=== PATIENT | male | born 1970 | race Caucasian/White ===

== ENCOUNTER 2017-12-25 13:16 | Emergency (ER) | payer MEDICAID ==
[~2017-12-25] VITALS: Ht 172.7 cm; Wt 70.4 kg
[2017-12-25 13:36] VITALS: BP 133/87
[2017-12-25] MEDS ORDERED: CLIN300C85 PO (13:45)
== END 2017-12-25 14:13 | disposition home or self-care (01) ==
LOC: ER 13:17
DX: K04.7 Periapical abscess without sinus (principal); Z79.899 Other long term (current) drug therapy
CPT/HCPCS: 99283

== ENCOUNTER 2019-03-30 09:19 | Emergency (ER) | payer MEDICAID ==
[~2019-03-30] VITALS: Ht 172.7 cm; Wt 56.7 kg
[~2019-03-30 09:19] MED LIST: CLIN-96 PO
[2019-03-30 09:29] VITALS: BP 114/75
[2019-03-30] MEDS ORDERED: AMOX500C2 PO (10:06)
[2019-03-30] MEDS ORDERED: CHLO473M3 PO (10:06)
== END 2019-03-30 10:20 | disposition home or self-care (01) ==
LOC: ER 09:19
DX: K04.7 Periapical abscess without sinus (principal)
CPT/HCPCS: 99283

== ENCOUNTER 2022-12-15 08:18 | Emergency (ER) | payer MEDICAID ==
[~2022-12-15] VITALS: Ht 172.7 cm; Wt 68.2 kg
[~2022-12-15 08:18] MED LIST changes: +CHLO473M3 PO; -CLIN-96 PO; +CLIN-97 PO
[2022-12-15 08:21] VITALS: BP 133/74
[2022-12-15] MEDS ORDERED: CHLO473M3 PO (09:50)
[2022-12-15] MEDS ORDERED: AMOX-419 PO (09:50)
== END 2022-12-15 10:01 | disposition home or self-care (01) ==
LOC: ER 08:19
DX: K08.89 Other specified disorders of teeth and supporting structures (principal); Z79.899 Other long term (current) drug therapy
CPT/HCPCS: 99283

== ENCOUNTER 2022-12-29 16:41 | Emergency (ER) | payer MEDICAID ==
[~2022-12-29] VITALS: Ht 172.7 cm; Wt 75.0 kg
[2022-12-29 17:21] VITALS: BP 121/79; PULSE 84; RESP 18; TEMP 98.1; O2SAT 98
[2022-12-29] MEDS ORDERED: IBUP-1986 PO (17:25)
[2022-12-29] MEDS ORDERED: CLIN300C54 PO (17:25)
== END 2022-12-29 17:30 | disposition home or self-care (01) ==
LOC: ER 16:42
DX: K04.7 Periapical abscess without sinus (principal)
CPT/HCPCS: 99283

== ENCOUNTER 2023-01-02 11:11 | Emergency (ER) | payer MEDICAID ==
[~2023-01-02] VITALS: Ht 172.7 cm; Wt 68.2 kg
[~2023-01-02 11:11] MED LIST changes: +CLIN300C54 PO; +IBUP-1986 PO
[2023-01-02 12:15] VITALS: BP 112/85; PULSE 85; RESP 16; TEMP 99.4; O2SAT 100
== END 2023-01-02 13:15 | disposition left against medical advice (07) ==
LOC: ER 11:11
DX: K04.7 Periapical abscess without sinus (principal); Z53.21 Procedure and treatment not carried out due to patient leaving prior to being seen by health care provider
CPT/HCPCS: 99281

== ENCOUNTER 2023-06-17 10:04 | Emergency (ER) | payer MEDICAID ==
[~2023-06-17] VITALS: Ht 170.2 cm; Wt 70.0 kg
[~2023-06-17 10:04] MED LIST changes: -CLIN300C54 PO
[2023-06-17 10:26] VITALS: BP 129/81; PULSE 94; RESP 16; O2SAT 96
[2023-06-17] MEDS ORDERED: CLIN300C63 PO (11:25)
[2023-06-17 11:50] VITALS: TEMP 97.8
== END 2023-06-17 11:59 | disposition home or self-care (01) ==
LOC: ER 10:04
DX: K08.89 Other specified disorders of teeth and supporting structures (principal)
CPT/HCPCS: 99283

== ENCOUNTER 2024-07-15 13:55 | Emergency (ER) | payer MEDICAID ==
[~2024-07-15] VITALS: Ht 172.7 cm; Wt 66.2 kg
[~2024-07-15 13:55] MED LIST changes: +CHLO473M13 PO; -CHLO473M3 PO
[2024-07-15] MEDS ORDERED: IBUP-1984 PO (15:44)
[2024-07-15] MEDS ORDERED: PENI500T2 PO (15:44)
[2024-07-15 15:51] VITALS: BP 122/80; PULSE 80; RESP 16; TEMP 97.9; O2SAT 98
== END 2024-07-15 15:52 | disposition home or self-care (01) ==
LOC: ER 13:55
DX: K08.89 Other specified disorders of teeth and supporting structures (principal); Z79.1 Long term (current) use of non-steroidal anti-inflammatories (NSAID); Z79.899 Other long term (current) drug therapy
CPT/HCPCS: 99283

== ENCOUNTER 2025-05-02 09:13 | Emergency (ER) | payer MEDICAID ==
[~2025-05-02] VITALS: Ht 170.2 cm; Wt 69.1 kg
[~2025-05-02 09:13] MED LIST changes: +CLIN-224 PO; -CLIN-97 PO
[2025-05-02 09:22] VITALS: BP 135/83; PULSE 96; RESP 18; TEMP 97.8; O2SAT 99
--- NOTE | 2025-05-02 09:32 | Physician Documentation ---
HPI ~ General Chief Complaint: Tooth Problem Stated Complaint: ABSCESS TOOTH Time Seen by MD: 09:27 OK to notify your PCP?: Yes Primary Medical Doctor: [facility] Source: patient Mode of Arrival: POV Exam Limitations: no limitations History of Present Illness HPI Comment Presents for dental pain and infection. He has multiple broken teeth that he has been taking different antibiotics given to him by friends. He has taken a couple of days of doxycycline as well as a couple of days of amoxicillin from left over prescriptions. Denies any fevers, nausea, vomiting or diarrhea. Not taken any medication for pain prior to arrival. Medication Reconciliation Allergies: Coded Allergies: No Known Allergies (Unverified , 05/02/25) Scheduled Chlorhexidine Gluconate (Periogard), 15 ML PO Q12H Chlorhexidine Gluconate (Periogard), 15 ML PO Q12H Clindamycin HCL* (Clindamycin HCL*), 1 CAP PO Q6H Ibuprofen (Ibuprofen), 1 TAB PO Q8H Past Medical History Past Medical History: No Pertinent History Past Surgical History: no surgical history Drug Use: none Lives In: Home Review of Systems All Other Systems at this time: Reviewed and Negative Physical Exam Vital Signs: RN Vital Signs have been reviewed: Yes, Temperature: 97.8, Source: Temporal, Heart Rate: 96, Respiratory Rate: 18, BP: 135/83, Pulse Oximetry: 99, Weight: 69.100 Oxygen Flow Rate: 0 Pulse Oximetry Reflects: adequate oxygenation Physical Exam General: Alert, no distress. HEENT: No injection, moist mucous membranes. Neck: Full range of motion. Respiratory: No respiratory distress, equal chest rise and fall. Chest: No accessory muscle use. Gastrointestinal: Nondistended. Extremities: Normal range of motion, no deformity. Neurologic: Oriented x4. Psychiatric: Normal mood and affect. Skin: Normal color, warm and dry. Dental: Multiple carious/decaying teeth to upper and lower left jaw with purulent discharge present at gumline. Progress Results/Orders Reviewed/noted all lab results: Yes Results/Orders Vital Signs 05/02/25 09:22 Temp 97.8 Pulse 96 Resp 18 B/P (MAP) 135/83 Pulse Ox 99 O2 Flow Rate 0 Medical Decision Making Additional information obtaine: old records Findings Multiple decayed teeth seen on exam. He has taken partial courses of different antibiotics with no relief. I have placed him on Cleocin with 1st dose given here rest sent to the pharmacy. For his pain I have given him Tylenol. I strongly suggested that he see a dentist next week as he needs to have multiple teeth pulled. He agrees with the plan. Differential Dx:Considerations: Include: Alveolar fracture, Periapical abscess, Peridontal abscess, Tooth Fracture Departure Disposition: HOME / SELF CARE / HOMELESS Impression: Primary Impression: Dental abscess Condition: Stable Discharge Instructions: Dental Abscess Referrals: NO PRIMARY CARE PROVIDER (PCP) Prescriptions Clindamycin (Cleocin ) 150 Mg Capsule 1 CAP PO Q6H for 10 Days, #40 CAP Prov: ANGELINA ZAPATA 05/02/25 Education Educated: Patient Educated regarding: diagnosis, treatment, prognosis, need for follow up Additional Comment Medical Screen Exam This patient recieved a medical screening examination. After reviewing the individual's medical complaints with presenting symptoms and performing an appropriate physical examination, it was determined that no immediate life- threatening emergency medical condition is present. This individual is also not a women having contractions. Signature Scribe Signature: . Attestation: Parts of this note were created using [employer] voice recognition software program. While efforts were made to correct any mistakes made by this voice recognition software program, nonsensical phrases may remain in this note. In addition, there may be errors and syntax, grammar, content and spelling. Scribed for Angelina Zapata by Angelina Santos NP . 05/02/25 09:49 ANGELINA ZAPATA May 02, 2025 09:32
[2025-05-02] MEDS ORDERED: CLIN150C2 PO (09:46)
== END 2025-05-02 09:50 | disposition home or self-care (01) ==
LOC: ER 09:13
DX: K04.7 Periapical abscess without sinus (principal); Z79.899 Other long term (current) drug therapy
CPT/HCPCS: 99283